=== PATIENT | male | born 1970 | race Asian ===

== ENCOUNTER 2019-02-23 08:33 | Emergency (ER) | payer OTHER, SELFPAY ==
[2019-02-23 08:46] VITALS: BP 155/98; PULSE 60; PULSE 63; RESP 18; TEMP 36.9; O2SAT 96; BMI 29.5
--- NOTE | 2019-02-23 08:52 | ED.LOWEXIN ---
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 He states before he was walking off in extensively but he had not been working or doing this sort of activity. Patient does have a history of fracture, states he has a pin in the ankle. It was a closed fracture according to the patient. Patient [place] specialty doctors [place] who told him that he may or may not have some changes which sound by his description like either cartilage or some arthritic changes within the joint. Patient states that he has a little bit of a burning sensation over the calf occasionally. He describes no other numbness in the lower foot. He does not describe any weakness. He states that weight-bearing does make it uncomfortable. He has a custom made orthotic and ankle splint that he is wearing with his shoe today. Patient is also complaining of a little bit of irritation over the right calf. He states that he did break his fibula on that side, he states that he did not have any casting but did have to wear splint for a long period of time. He did not have surgery on that side. That also started at the same time period and he sometimes feels sort of crampy burning feeling when he has been working. He denies any other symptoms, no other skin changes. He has not had any other recent trauma, has not roll his ankles or had other significant physical changes. Review of Systems Review of Systems ROS Unobtainable: All systems reviewed & are unremarkable except as noted in HPI and below Constitutional Denies weakness Musculoskeletal Denies abnormal gait, Reports arthralgias, Denies joint swelling, Denies limited range of motion, Reports muscle cramps (Have), Denies numbness, Reports tingling and Reports other (foot may have been more swollen) Integumentary/Breasts Denies erythema, Denies rash, Denies unusual bruising and Denies wounds Neurologic Denies abnormal gait, Denies numbness, Reports tingling and Denies weakness [facility] Surgical History (Updated 02/23/19 @ 08:56 by Kesha Hernandez DO) History of ankle surgery (Chronic) Social History Smoking Status: Never smoker Social History Smoking Status: Never smoker Exam Narrative Exam Narrative: GENERAL: Alert and oriented x three, well-nourished, well-appearing male in mild distress. HEENT: Head normocephalic, atraumatic, EOMI, pupils reactive, face symmetric, moist mucous membranes NECK: Supple, full range of motion EXTREMITIES: Normal range of motion, no clubbing or edema. Neurovascularly intact. Patient does not have any significant bony tenderness of the left lower extremity, ankle or foot. No swelling is appreciated. Patient has 2+ dorsalis pedis and tibialis. He has full range of motion is able to weightbear thumb. Patient has 5/5 muscle strength in the lower extremity bilaterally. Patient does not have any erythema or other skin color changes. On the right lower extremity patient does not have any bony tenderness over the fibula and has full range of motion of the ankle and knee. NEUROLOGICAL: Cranial nerves II through XII grossly intact. Moving all extremities SKIN: Warm, dry, no petechiae, no rashes or lesions. Initial Vital Signs Initial Vital Signs: Vital Signs Temperature 98.4 F 02/23/19 08:46 Pulse Rate 60 02/23/19 08:46 Respiratory Rate 18 02/23/19 08:46 Blood Pressure 155/98 H 02/23/19 08:46 Pulse Oximetry 96 02/23/19 08:46 Course Orders Ordered: ED Orders 02/23/19 08:51 XR ankle LT min 3V Stat Vital Signs - 8 hr 02/23/19 08:46 Temperature 98.4 F Pulse Rate 63 Pulse Rate [Bilateral Dorsalis Pedis] 60 Respiratory Rate 18 Blood Pressure 155/98 H Pulse Oximetry 96 MDM - Extremity Injury (Lower) Imaging Data left ankle xray: Radiologist's impression: [address] [address] XRay Report Signed Patient: Octavio Larson#: [id number] : 1970Acct:[id number] Age/Sex: 48 / MDate of Service: 02/23/19 Loc: ED Accession Number: [id number] Procedure: XR ankle LT min 3V Ordering Provider: Kesha Hernandez D.O. PROCEDURE: XR ANKLE LT MIN 3V INDICATIONS: left ankle pain, new job landscaping, hx of fx with pin ejrilyn TECHNIQUE: 3 views of the ankle were acquired. COMPARISON: None. FINDINGS: Bones: There is a remote medial malleolar fracture. There is a medial malleolar screw, without findings of failure or loosening. No acute fractures or dislocations. Ankle mortise is normally aligned. No suspicious bony lesions. A plantar calcaneal spur is seen. The talar dome demonstrates no elda abnormality. Soft tissues: No tibiotalar joint effusion. Achilles tendon appears normal. IMPRESSION: No acute bony abnormality is seen. Unremarkable medial malleolar screw. Dictated by: Rajesh Pelayo M.D. on 02/23/2019 at 8:04 Approved by: Rajesh Pelayo M.D. on 02/23/2019 at 8:05 [facility] Narrative Medical decision making narrative: For patient's description I suspect that he is having some increased discomfort with his change in physical activity and stressing of his ankle and over the fibular fracture. Discussed with patient will repeat imaging of the ankle as he has hardware to make sure there is no new changes. No acute changes hardware appears intact. I suspect patient's discomfort is from work. He was unsure if he wanted to fill out L and I paperwork and was encouraged to do so at least have it included. We did discuss give him referral for Orthopedic surgery if he would like I do not know if he is a candidate for had the pin removed in his ankle but if he is it might be somewhat helpful although we did discuss that it would not resolve his problems. Discharge Plan Departure Patient Disposition: Home Clinical Impression: Left ankle pain Qualifiers: Chronicity: unspecified Qualified Code(s): M25.572 - Pain in left ankle and joints of left foot Discharge Date/Time: 02/23/19 09:38 Interventions: ED Discharge Assessment Last Done: 02/23/19 09:35 Instructions: DI for Ankle Pain Activity Restrictions/Additional Instructions: [facility] to have issues with your [facility]. Call for an appointment. You may take ibuprofen up to 600 mg every 6 hours as needed for pain you can also take Tylenol with this up to a 1000 mg every 8 hours. High you may continue to use your custom ankle splint if you find it helpful. Keep splint clean and dry. Elevated affected body part to decrease swelling. OK to use ice pack on the affected body part. Use for 15-20 minutes each time, for 5-6x per day. If you develop worsening pain, numbness, tingling, discoloration of the affected body part, loosen the splint by loosening the CHRISTIANO wrap, and either see your doctor for an urgent re-assessment, or return to the Emergency Department. Return to the Emergency Department for any new or worsening symptoms. Referrals: Jacques Wise MD [Physician] -
--- NOTE | 2019-02-23 08:59 | ED_ITS ---
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 He states before he was walking off in extensively but he had not been working or doing this sort of activity. Patient does have a history of fracture, states he has a pin in the ankle. It was a closed fracture according to the patient. Patient has [place] several specialty doctors [place] who told him that he may or may not have some changes which sound by his description like either cartilage or some arthritic changes within the joint. Patient states that he has a little bit of a burning sensation over the calf occasionally. He describes no other numbness in the lower foot. He does not describe any weakness. He states that weight- bearing does make it uncomfortable. He has a custom made orthotic and ankle splint that he is wearing with his shoe today. Patient is also complaining of a little bit of irritation over the right calf. He states that he did break his fibula on that side, he states that he did not have any casting but did have to wear splint for a long period of time. He did not have surgery on that side. That also started at the same time period and he sometimes feels sort of crampy burning feeling when he has been working. He denies any other symptoms, no other skin changes. He has not had any other recent trauma, has not roll his ankles or had other significant physical changes. Review of Systems Review of Systems ROS Unobtainable: All systems reviewed & are unremarkable except as noted in HPI and below Constitutional Denies weakness Musculoskeletal Denies abnormal gait, Reports arthralgias, Denies joint swelling, Denies limited range of motion, Reports muscle cramps (Have), Denies numbness, Reports tingling and Reports other (foot may have been more swollen) Integumentary/Breasts Denies erythema, Denies rash, Denies unusual bruising and Denies wounds Neurologic Denies abnormal gait, Denies numbness, Reports tingling and Denies weakness PFSH Surgical History (Updated 02/23/19 @ 08:56 by Kesha Hernandez DO) History of ankle surgery (Chronic) Social History Smoking Status: Never smoker Social History Smoking Status: Never smoker Exam Narrative Exam Narrative: GENERAL: Alert and oriented x three, well-nourished, well- appearing male in mild distress. HEENT: Head normocephalic, atraumatic, EOMI, pupils reactive, face symmetric, moist mucous membranes NECK: Supple, full range of motion EXTREMITIES: Normal range of motion, no clubbing or edema. Neurovascularly intact. Patient does not have any significant bony tenderness of the left lower extremity, ankle or foot. No swelling is appreciated. Patient has 2+ dorsalis pedis and tibialis. He has full range of motion is able to weightbear thumb. Patient has 5/5 muscle strength in the lower extremity bilaterally. Patient solorzano s not have any erythema or other skin color changes. On the right lower extremity patient does not have any bony tenderness over the fibula and has full range of motion of the ankle and knee. NEUROLOGICAL: Cranial nerves II through XII grossly intact. Moving all extremities SKIN: Warm, dry, no petechiae, no rashes or lesions. Initial Vital Signs Initial Vital Signs: Vital Signs Temperature 98.4 F 02/23/19 08:46 Pulse Rate 60 02/23/19 08:46 Respiratory Rate 18 02/23/19 08:46 Blood Pressure 155/98 H 02/23/19 08:46 Pulse Oximetry 96 02/23/19 08:46 Course Orders Ordered: ED Orders 02/23/19 08:51 XR ankle LT min 3V Stat Vital Signs - 8 hr 02/23/19 08:46 Temperature 98.4 F Pulse Rate 63 Pulse Rate [Bilateral Dorsalis Pedis] 60 Respiratory Rate 18 Blood Pressure 155/98 H Pulse Oximetry 96 MDM - Extremity Injury (Lower) Imaging Data left ankle xray: Radiologist's impression: [address] [address] XRay Report Signed Patient: Octavio Larson#: [id number] : 1970Acct:[id number] Age/Sex: 48 / MDate of Service: 02/23/19 Loc: ED Accession Number: [id number] Procedure: XR ankle LT min 3V Ordering Provider: Kesha Hernandez D.O. PROCEDURE: XR ANKLE LT MIN 3V INDICATIONS: left ankle pain, new job landscaping, hx of fx with pin jerilyn TECHNIQUE: 3 views of the ankle were acquired. COMPARISON: None. FINDINGS: Bones: There is a remote medial malleolar fracture. There is a medial malleolar screw, without findings of failure or loosening. No acute fractures or dislocations. Ankle mortise is normally aligned. No suspicious bony lesions. A plantar calcaneal spur is seen. The talar dome demonstrates no elda abnormality. Soft tissues: No tibiotalar joint effusion. Achilles tendon appears normal. IMPRESSION: No acute bony abnormality is seen. Unremarkable medial malleolar screw. Dictated by: Rajesh Pelayo M.D. on 02/23/2019 at 8:04 Approved by: Rajesh Pelayo M.D. on 02/23/2019 at 8:05 [facility] Narrative Medical decision making narrative: For patient's description I suspect that he is having some increased discomfort with his change in physical activity and stressing of his ankle and over the fibular fracture. Discussed with patient will repeat imaging of the ankle as he has hardware to make sure there is no new changes. No acute changes hardware appears intact. I suspect patient's discomfort is from work. He was unsure if he wanted to fill out L and I paperwork and was encouraged to do so at least have it included. We did discuss give him referral for Orthopedic surgery if he would like I do not know if he is a candidate for had the pin removed in his ankle but if he is it might be somewhat helpful although we did discuss that it would not resolve his problems. Discharge Plan Departure Patient Disposition: Home Clinical Impression: Left ankle pain Qualifiers: Chronicity: unspecified Qualified Code(s): M25.572 - Pain in left ankle and joints of left foot Discharge Date/Time: 02/23/19 09:38 Interventions: ED Discharge Assessment Last Done: 02/23/19 09:35 Instructions: DI for Ankle Pain Activity Restrictions/Additional Instructions: [facility] for [facility] to have issues with your [facility]. Call for an appointment. You may take ibuprofen up to 600 mg every 6 hours as needed for pain you can also take Tylenol with this up to a 1000 mg every 8 hours. High you may continue to use your custom ankle splint if you find it helpful. Keep splint clean and dry. Elevated affected body part to decrease swelling. OK to use ice pack on the affected body part. Use for 15-20 minutes each time, for 5-6x per day. If you develop worsening pain, numbness, tingling, discoloration of the affected body part, loosen the splint by loosening the CHRISTIANO wrap, and either see your doctor for an urgent re-assessment, or return to the Emergency Department. Return to the Emergency Department for any new or worsening symptoms. Referrals: Jacques Wise MD [Physician] -
== END 2019-02-23 09:38 | disposition home or self-care (01) ==
LOC: ED 09:42
PROVIDERS: Emergency Provider Emergency Medicine
DX: M25.572 Pain in left ankle and joints of left foot (principal)
CPT/HCPCS: 73610; 99282; 99283

== ENCOUNTER 2023-12-27 11:47 | Emergency (ER) | payer OTHER, SELFPAY ==
[2023-12-27 12:00] VITALS: BP 186/131; PULSE 73; RESP 16; TEMP 36.9; O2SAT 99; BMI 28.3
--- NOTE | 2023-12-27 13:03 | ED_ITS ---
HPI - General Adult General Chief complaint: Urogenital-Male Stated complaint: Blood in Ejaculate Time Seen by Provider: 12/27/23 11:52 Source: patient Mode of arrival: Family Vehicle History of Present Illness HPI narrative: Patient is a 53-year-old male who a couple days ago had blood in his ejaculate. He states that it was not painful. He has no history of sexually transmitted diseases. Not concerned about that currently. No trauma. He states he did not engage in anal sex. He did not stick anything in his urethra. He has ejaculated 1 time since then and it was also bloody at that point. He also states he is having urinary frequency. No abdominal pain. No lumps bumps rashes or penile discharge. Review of Systems Constitutional Constitutional: Reports system reviewed and no additional complaints, except as documented Gastrointestinal Gastrointestinal: Reports system reviewed and no additional complaints, except as documented Genitourinary Genitourinary: Reports system reviewed and no additional complaints, except as documented Hematologic/Lymphatic On Anticoagulants: No Patient History Surgical History (Updated 02/23/19 @ 08:56 by Kesha Hernandez DO) History of ankle surgery Social History Smoking Status: Never smoker Smoking Status: Never smoker alcohol intake frequency: 0-2 drinks per day Substance Use Type: marijuana Exam Initial Vital Signs Initial Vital Signs: Vital Signs Temperature 98.5 F 12/27/23 12:00 Pulse Rate 73 12/27/23 12:00 Respiratory Rate 16 12/27/23 12:00 Blood Pressure 186/131 H 12/27/23 12:00 Pulse Oximetry 99 12/27/23 12:00 Oxygen Delivery Method Room Air 12/27/23 12:00 HENME Head: normal to inspection and normocephalic GI Inspection: normal to inspection and non-distended Skin General: no rashes or lesions noted Course Vital Signs Vital signs: Vital Signs - 8 hr 12/27/23 12:00 Temperature 98.5 F Pulse Rate 73 Respiratory Rate 16 Blood Pressure 186/131 H Pulse Oximetry 99 Oxygen Delivery Method Room Air Medical Decision Making Lab Data Lab results reviewed: Yes I reviewed the patient's lab results. Labs: Urine Dip Bedside Urine Glucose Negative Bedside Urine Bilirubin - Negative Bedside Urine Ketone - Negative Urine Specific Maynard 1.015 Bedside Urine Occult Blood - Negative Bedside Urine pH 6.0 Bedside Urine Protein - Negative Bedside Urine Urobilinogen - Negative Bedside Urine Nitrite - Negative Bedside Urine Leukocytes - Negative Esterase Point of care testing: Urine Dip Bedside Urine Glucose Negative Bedside Urine Bilirubin - Negative Bedside Urine Ketone - Negative Urine Specific Maynard 1.015 Bedside Urine Occult Blood - Negative Bedside Urine pH 6.0 Bedside Urine Protein - Negative Bedside Urine Urobilinogen - Negative Bedside Urine Nitrite - Negative Bedside Urine Leukocytes - Negative Esterase MDM Narrative Medical decision making narrative: Urinalysis is unremarkable. The patient reports no concern for sexually transmitted infections. Also reports no external lesions. No further workup required in the emergency department. I do recommend that he follows up with Urology. Provided reassurance. He expressed understanding and agreement. Discharge Plan Departure Patient Disposition: Home Clinical Impression: Bloody ejaculation Activity Restrictions/Additional Instructions: Continue to take all of your medications as directed. I do feel that you need a follow-up with Urology. You can contact them with the number provided below. You may need to talk with your primary provider for this as well. Return to the emergency department for new symptoms. Referrals: Nicki Her MD [Physician] - Stand Alone Forms: Patient Portal/API
[2023-12-27 13:13] VITALS: BP 187/110; PULSE 72; RESP 16; O2SAT 99
== END 2023-12-27 13:14 | disposition home or self-care (01) ==
PROVIDERS: Emergency Provider Emergency Medicine
DX: R36.1 Hematospermia (principal)
CPT/HCPCS: 81003; 99281; 99282